=== PATIENT | female | born 1950 | race Caucasian/White ===

== ENCOUNTER → 2016-08-28 | Outpatient (CLI) | payer SELFPAY ==
[~2016-08-28] MED LIST: ATORVASTATIN CA80 MG PO; BACLOFEN10 MG PO; HYDROCODON-ACE1 EAC7 PO; IMDUR120 MG PO; IMDUR60 MG PO; LANSOPRAZOLE30 MG PO; LO-DOSE ASPIRIN81 M1 PO; LORTAB 5-325 M1 EACH PO; METFORMIN HCL1000 MG PO; METFORMIN HCL500 MG PO; NORCO 5/3251 TABLET PO; PREDNISONE10 MG PO; VALIUM2 MG PO; ZETIA10 MG PO
== END | disposition home or self-care (01) ==
LOC: RAD 11:49
DX: R91.8 Other nonspecific abnormal finding of lung field (principal)
CPT/HCPCS: 71020